=== PATIENT | male | born 1970 | race Two or more races ===

== ENCOUNTER 2019-05-26 09:40 | Day surgery (SDC) | payer OTHER ==
[~2019-05-26] VITALS: Ht 170.2 cm; Wt 68.0 kg
[2019-05-26] VITALS (7 sets, daily range): BP systolic 108–118; BP diastolic 70–76
[~2019-05-26 09:40] MED LIST: GENVOYA TABLET1 EACH PO; MULTIVITAMINS1 EA14 PO
[2019-05-26] MEDS ORDERED: Flurbiprofen 0.03% Opth Sol 2.5ml ONE (10:10)
[2019-05-26] MEDS ORDERED: Cyclopentolate 1% Opth Sol 2ml ONE (10:10)
[2019-05-26] MEDS ORDERED: Vigamox Opth Soln 3ml ONE (10:11)
[2019-05-26] MEDS ORDERED: Phenylephrine 10% Opth Soln 5ml ONE (10:11)
[2019-05-26] MEDS: Phenylephrine 10% Opth Soln 5ml RIGHT EYE SCH ×2 (10:13→10:26)
[2019-05-26] MEDS: Cyclopentolate 1% Opth Sol 2ml RIGHT EYE SCH ×2 (10:13→10:26)
[2019-05-26] MEDS: Flurbiprofen 0.03% Opth Sol 2.5ml RIGHT EYE SCH ×2 (10:13→10:26)
[2019-05-26] MEDS: Vigamox Opth Soln 3ml RIGHT EYE SCH ×2 (10:13→10:26)
[2019-05-26] MEDS ORDERED: Lidocaine 1% MPF 10mg/ml 5ml ONE ×2 (10:26→11:00)
[2019-05-26] MEDS ORDERED: EPINEPHrine 1mg/1ml Amp ONE (10:26)
[2019-05-26] MEDS ORDERED: Polysporin Opth Oint 3.5gm ONE (10:26)
[2019-05-26] MEDS ORDERED: Kenalog-40 1ml Vial ONE (10:26)
[2019-05-26] MEDS ORDERED: Carbachol 0.01% Op Soln 1.5ml vial ONE ×2 (10:26→11:41)
[2019-05-26] MEDS ORDERED: Tetracaine 0.5% Opth 4ml Soln ONE (10:27)
[2019-05-26] MEDS ORDERED: BSS 15ml BTL ONE ×2 (10:27→10:29)
[2019-05-26] MEDS ORDERED: Triamcinolone 40mg/ml PF Vial ONE (10:27)
[2019-05-26] MEDS ORDERED: BSS 500ml btl ONE (10:27)
[2019-05-26] MEDS ORDERED: Healon Duet Dual Pack ONE ×2 (10:28→10:46)
[2019-05-26] MEDS ORDERED: Proparacaine 0.5% Opth Soln 15ml ONE (10:29)
--- NOTE | 2019-05-26 10:55 | Opthalmology H&P ---
Ophthalmology H&P H&P Chief Complaint: decreased vision in right eye HPI Vision Affects Ability to: read, watch TV, drive, focus/use eyes together, manage personal affairs HPI Narrative Blurred vision right eye interfering with daily activities Exam Visual Acuity: Best corrected vision 20/50 right eye and 20/20 left eye Tension: normal OU Eye Exam: normal OU: external exam, palpebral fissure-width, marginal reflex distance, levator function, corneas, anterior chambers, fundus exam; findings: lens - 2+ NS 2+ AC left eye Assessment/Plan Treatment Plan: cataract extraction w/ lens implant Goals of Treatment: improvement of vision Attestation Attestation The risks and benefits of the surgery as well as alternative procedures were explained to the patient in detail. Tyrel Loving MD May 26, 2019 10:55
[2019-05-26] MEDS ORDERED: Akten 3.5% 1ml Btl ONE (10:56)
--- NOTE | 2019-05-26 10:56 | Pre-Procedure Note/Attestation ---
Pre-Procedure Note/Attestation Complete Prior to Procedure Planned Procedure: right - cataract extraction with IOL right eye Indications for Procedure Pre-Operative Diagnosis: cataract right eye Attestation I attest that I discussed the nature of the procedure; its benefits; risks and complications; and alternatives (and the risks and benefits of such alternatives ), prior to the procedure, with the patient (or the patient's legal manufacturer's representative). I attest that, if there was a reasonable possibility of needing a blood transfusion, the patient (or the patient's legal manufacturer's representative) was given the [facility] standardized written summary, pursuant to the Lonny Ramón Blood Safety Act ([place] Health and Safety Code # 1645, as amended). I attest that I re-evaluated the patient just prior to the surgery and that there has been no change in the patient's H&P, except as documented below: Tyrel Loving MD May 26, 2019 10:56
[2019-05-26] MEDS ORDERED: Propofol 200mg/20ml IV ONE (11:00)
[2019-05-26] MEDS ORDERED: NS Irrig 1000ml ONE (11:00)
[2019-05-26] MEDS ORDERED: LR 1000ml ONE (11:00)
[2019-05-26] MEDS ORDERED: Sterile Water Irrig 1000ml IRRIG ONE (11:00)
[2019-05-26] MEDS ORDERED: LR 1000ml 1,000 ML IVLG SCH (11:01)
--- NOTE | 2019-05-26 11:03 | Anethesia Preoperative Eval ---
Anesthesia Pre-op PMH/ROS General Date of Evaluation: May 26, 2019 Time of Evaluation: 10:56 Anesthesiologist: Elisa ASA Score: ASA 1 Mallampati Score Class I : Soft palate, uvula, fauces, pillars visible Class II: Soft palate, uvula, fauces visible Class III: Soft palate, base of uvula visible Class IV: Only hard plate visible Mallampati Classification: Class I Surgeon: Fabienne Diagnosis: Cataract OD Surgical Procedure: Cat Ext IOL OD Anesthesia History: none Family History: no anesthesia problems Allergies: Coded Allergies: No Known Allergies (Unverified , 05/25/19) Medications: see eMAR Patient NPO?: Yes Past Medical History HEENT: Reports: cataract (R) Anesthesia Pre-op Phys. Exam Physician Exam Last Vital Signs Date Time Temp Pulse Resp B/P (MAP) Pulse Ox O2 Delivery O2 Flow Rate FiO2 05/26/19 10:35 Room Air 05/26/19 10:24 97.3 67 18 116/73 98 Constitutional: NAD Neurologic: CN 2-12 intact Cardiovascular: RRR Respiratory: CTA Gastrointestinal: S/NT/ND Airway Exam Mallampati Score: Class I MO: full ROM: full Teeth: intact Anesthesia Pre-op A/P Risk Assessment & Plan Assessment: ASA 1 Plan: GA Status Change Before Surgery: Jose Norton MD May 26, 2019 11:03
--- NOTE | 2019-05-26 11:04 | 48 Hour Post Anesthesia Eval ---
Post Anesthesia Evaluation Procedure: Cat Ext IOL OD Date of Evaluation: May 26, 2019 Time of Evaluation: 14:12 Blood Pressure Systolic: 112 0: 78 Pulse Rate: 66 Respiratory Rate: 18 Temperature (Fahrenheit): 98.2 O2 Sat by Pulse Oximetry: 99 Airway: patent Nausea: No Vomiting: No Pain Intensity: 1 Hydration Status: adequate Cardiopulmonary Status: Stable Mental Status/LOC: patient returned to baseline Follow-up Care/Observations: 0 Post-Anesthesia Complications: 0 Follow-up care needed: ready to discharge Jose Pérez MD May 26, 2019 11:04
--- NOTE | 2019-05-26 11:04 | Immediate Post-Op Evaluation ---
Immediate Post-Op Evalulation Immediate Post-Op Evalulation Procedure: Cat Ext IOL OD Date of Evaluation: May 26, 2019 Time of Evaluation: 12:07 IV Fluids: 600 LR Blood Products: 0 Estimated Blood Loss: 1 Urinary Output: 0 Blood Pressure Systolic: 113 Blood Pressure Diastolic: 79 Pulse Rate: 73 Respiratory Rate: 16 O2 Sat by Pulse Oximetry: 100 Temperature (Fahrenheit): 97 Pain Score (1-10): 1 Nausea: No Vomiting: No Complications 0 Patient Status: awake, reacts, patent, none Hydration Status: adequate Jose Pérez MD May 26, 2019 11:04
[2019-05-26] MEDS ORDERED: Hydromorphone 0.5mg/0.5ml inj IVP PRN (11:15)
[2019-05-26] MEDS ORDERED: oxyCODONE HCL/Acetaminophen 5/325mg ORAL PRN (11:15)
[2019-05-26] MEDS ORDERED: DiphenhydrAMINE 50mg/ml Inj IVP PRN (11:15)
[2019-05-26] MEDS ORDERED: HYDROcodone/Acetamin 7.5/325 tab ORAL PRN (11:15)
[2019-05-26] MEDS ORDERED: Meperidine 50mg/ml Inj(FOR RIGORS ONLY) IVP PRN (11:15)
[2019-05-26] MEDS ORDERED: Labetalol 5mg/ml 20ml vial IV PRN (11:15)
[2019-05-26] MEDS ORDERED: Atropine Sulfate 0.4mg/ml inj IVP PRN (11:15)
[2019-05-26] MEDS ORDERED: Metoclopramide 10mg/2ml Inj IVP PRN (11:15)
[2019-05-26] MEDS ORDERED: fentaNYL 100 mcg/2 mL IV PRN (11:15)
[2019-05-26] MEDS ORDERED: HYDROcodone/Acetamin 5/325 tab ORAL PRN (11:15)
[2019-05-26] MEDS ORDERED: Ketorolac 30mg Inj IV PRN ×2 (11:15)
[2019-05-26] MEDS ORDERED: Midazolam 2mg/2ml Inj IVP PRN (11:15)
[2019-05-26] MEDS ORDERED: LORazepam Inj 2mg/ml 1ml IV PRN (11:15)
--- NOTE | 2019-05-26 11:57 | Brief Operative Note ---
Immediate Post Operative Note Operative Note Chief Complaint: Blurred vision right eye Pre-op Diagnosis: cataract right eye Procedure: cataract extraction with IOL right eye Post-op Diagnosis: same as pre-op Findings: consistent w/pre-op dx studies Surgeon: Tyrel Loving Applications Development Consultant: none Additional Surgeons: none Anesthesia: local, MAC Specimen: none Complications: none Condition: stable Fluids: as per anesthesiologist Estimated Blood Loss: none Drains: none Packing: none Implant(s) used?: Yes - ZCB00 +20.00 Tyrel Loving MD May 26, 2019 11:57
[2019-05-26] MEDS ORDERED: acetaZOLAMIDE 500mg Sequel ORAL SCH (12:00)
--- NOTE | 2019-05-26 18:45 | Operative Note - Dictated ---
DATE OF OPERATION: 05/26/2019 SURGEON: Tyrel Loving M.D. 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 PROCEDURE PERFORMED: Cataract extraction with intraocular lens implant, right eye, [id number]. ANESTHESIA: Topical with intracameral MAC. COMPLICATIONS: None. PROCEDURE IN DETAIL: After explaining the risks and benefits of the procedure to the patient including the possibility of decrease or loss of vision from infection, endophthalmitis, retinal detachment, macular edema, glaucoma, corneal damage, and other causes, an informed consent was obtained. The patient was brought into the operating room and a few drops of Akten was placed in the right eye. The right eye was prepped and draped in the usual sterile fashion. A speculum was placed in the right eye. A side-port blade was used to make a paracentesis and about 0.1 mL of lidocaine 1% without preservative was injected into the anterior chamber and then some viscoelastic was injected into the anterior chamber. A 2.8 mm keratome was used to make a temporal limbal incision 2.8 mm in length. Some more viscoelastic was injected into the anterior chamber. A cystotome and Utrata forceps were used to do a continuous curvilinear capsulorrhexis and hydrodissection was done using BSS on a cannula. Phacoemulsification was done using a phaco flip technique to remove the nucleus and automated irrigation aspiration was done to remove all the remaining cortex. At this point, it was noted that the posterior capsule was intact. Some viscoelastic was injected to inflate the capsular bag. Using Wise delivery System, this lens was injected into the bag. Wise lens Tecnis ZCB00, power 20.0 diopters. Sinskey hook was used to rotate the lens and make sure that the lens was inside of the bag and then automated irrigation aspiration was done to remove all the viscoelastic. Some Miostat was injected into the anterior chamber and the wound was hydrated using BSS on a cannula. At this point, the wound was checked for any leakage, which there was none. It was watertight, so no sutures were required. It was noted that the lens was well centered in the bag and the pupil was round. The speculum was removed from the right eye. A drop of pilocarpine and a drop of ciprofloxacin was placed in the right eye and some Maxitrol ointment was placed over the right eye. An eye pad and eye shield were also placed and taped to the right eye. The patient tolerated the procedure well and there were no complications. He was transferred to recovery room and will be followed up in the office tomorrow morning. Tyrel Loving M.D. DR: KELY JOB#: [id number] CC:
== END 2019-05-26 13:15 | disposition home or self-care (01) ==
LOC: SUR 09:40
DX: H25.11 Age-related nuclear cataract, right eye (principal); H25.011 Cortical age-related cataract, right eye
CPT/HCPCS: 66984; J0171; J2250; J2704; J3370; V2632; 94003; 94150; J3300